=== PATIENT | female | born 1995 | race African-American/Black ===

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

== ENCOUNTER 2017-02-08 01:14 | Emergency (ER) | payer OTHER ==
[~2017-02-08] VITALS: Ht 160 cm; Wt 50.0 kg
[~2017-02-08 01:14] MED LIST changes: -AMOX875T2 PO; +BACT800T5 PO; +CLIN300C5 PO; -FERR1TAB36 PO; -MESA1TAB2 PO; -PRED10 PO
[2017-02-08 01:17] VITALS: BP 104/68; PULSE 78; RESP 16; TEMP 98.7; O2SAT 100
--- NOTE | 2017-02-08 01:31 | PD ---
HPI Chief Complaint: Adult Literacy Teacher Problem/Complaint Time Seen by Provider: 01:29 Travel History International Travel<30 days: No Contact w/Intl Traveler<30days: No Traveled to known affect area: No History of Present Illness HPI The patient is a 22 year old female who presents to the [facility] emergency department with a history of vaginal irritation and discharge that she reports is been ongoing for the last 3 weeks. She went to [facility] at the onset of symptoms and had a pelvic examination that revealed bacterial vaginosis. She reports that she took a 7 day course of the antibiotic. She reports that she had improvement for one day and then had recurrence of symptoms. The patient reports that the vaginal discharge is white to yellow in color. She reports that it has a slight odor. She reports that she has vaginal itching and burning associated with this. She denies any new sexual partners or concerns about sexually transmitted infections. Her last mental cycle was January 26. She denies having any abdominal pain, fever or chills. She denies having any vomiting or diarrhea. [facility] Past Medical History Narrative Medical The patient's past medical history is significant for being diagnosed with inflammatory bowel disease in June 2016 for Anemia: Yes Autoimmune Disease: No Cancer: No Cardiovascular Problems: No Diminished Hearing: No Endocrine: No Genitourinary: No Immune Disorder: No Neurologic: No Psychiatric: No Reproductive: No Respiratory: No Immunizations Current: Yes Sickle Cell Disease: No Tetanus Vaccination: < 5 Years ?: Not LMP: 01/26/2017 Past Surgical History Narrative Surgical The patient's past surgical history is significant for scoliosis surgery with seema placement in 2012. Other Surgery: Yes (rods in her back, 2012) Social History Alcohol Use: No Tobacco Use: No Substance Use: No Allergies-Medications (Allergen,Severity, Reaction): Coded Allergies: No Known Allergies (Unverified , 07/06/16) Reported Meds & Prescriptions Reported Meds & Active Scripts Active No Active Prescriptions or Reported Medications Review of Systems Except as stated in HPI: all other systems reviewed are Neg General / Constitutional: No: Fever Eyes: No: Visual changes HENT: No: Headaches Cardiovascular: No: Chest Pain or Discomfort Respiratory: No: Shortness of Breath Gastrointestinal: No: Abdominal Pain Genitourinary: Positive: Discharge, Other (vaginal itching), No: Urgency, Frequency, Dysuria Musculoskeletal: No: Pain Skin: No Rash Neurologic: No: Weakness Psychiatric: No: Depression Endocrine: No: Polydipsia Hematologic/Lymphatic: No: Easy Bruising Physical Exam Narrative General: The patient is a well-developed well-nourished female in no acute distress. Head and Neck exam: Head is normocephalic atraumatic. Neck: No palpable lymphadenopathy. No nuchal rigidity. No thyromegaly. Cardiovascular: Regular rate and rhythm without murmurs, gallops, or rubs. Lungs: Clear to auscultation bilaterally. No wheezes, rhonchi, or rales. Abdomen: Soft, without tenderness to palpation in all 4 quadrants of the abdomen. No guarding, rebound, or rigidity. Normal bowel sounds are audible. No tenderness on palpation of McBurney's point. Extremities: No clubbing, cyanosis, or edema. No calf tenderness on palpation. Back: No costovertebral angle tenderness to palpation. Neurologic Exam: Grossly nonfocal. Skin Exam: No rash noted. Intact skin that is warm and dry. Gynecologic exam: The patient was placed in the dorsal lithotomy position. Her external genitalia were examined. She had no evidence of rash or lesions. The speculum was placed into her vagina and the cervix was identified. The patient is noted to have a thin yellow discharge with occasional clumping noted. No cervical friability. On Bimanual exam: she has no cervical motion tenderness. No adnexal tenderness or prominence noted on palpation. No uterine tenderness or enlargement noted on palpation. Data Data Last Documented VS Vital Signs Date Time Temp Pulse Resp B/P (MAP) Pulse Ox O2 Delivery O2 Flow Rate FiO2 02/08/17 01:17 98.7 78 16 104/68 (80) 100 Orders Orders Gc And Chlamydia Pcr (02/08/17 01:30) Wet Prep Profile (02/08/17 01:30) Urinalysis - C+S If Indicated (02/08/17 01:30) Ed Urine Pregnancytest Poc (02/08/17 01:30) Azithromycin Powd Pack (Zithromax Powd P (02/08/17 02:45) Ceftriaxone Inj (Rocephin Inj) (02/08/17 02:45) Lidocaine 1% Inj (50 Ml) (Xylocaine 1% I (11/29/17 02:45) Labs Laboratory Tests Test 02/08/17 02:15 Urine Color YELLOW Urine Turbidity CLEAR Urine pH 6.0 Urine Specific [employer] 1.029 Urine Protein TRACE mg/dL Urine Glucose (UA) NEG mg/dL Urine Ketones NEG mg/dL Urine Occult Blood NEG Urine Nitrite NEG Urine Bilirubin NEG Urine Urobilinogen 2.0 MG/DL Urine Leukocyte Esterase LARGE Urine RBC 4 /hpf Urine WBC 5 /hpf Urine Squamous Epithelial Cells 3 /hpf Urine Bacteria RARE /hpf Urine Mucus FEW /lpf Urine Yeast (Budding) RARE Microscopic Urinalysis Comment CULT NOT INDICATED Clue Cells (Wet Prep) NONE SEEN Vaginal Trichomonas (Wet Prep) NONE SEEN Vaginal Yeast (Wet Prep) PRESENT MDM Medical Decision Making Medical Screen Exam Complete: Yes Emergency Medical Condition: Yes Medical Record Reviewed: Yes Differential Diagnosis Gonorrhea, versus chlamydia, versus bacterial vaginosis, versus yeast vaginitis , versus trichomoniasis Narrative Course During the course of the patients emergency department visit, the patients history, examination, and differential diagnosis were reviewed with the patient. The patient was placed on a school lunch monitor with oximetry and frequent blood pressure monitoring. The patient had a urine sent for analysis, bedside test was done and noted to be negative. GC and chlamydia were sent, wet prep was sent. The patient was initially provided Rocephin 250 IM, Zithromax 1 g by mouth. The patients laboratory studies were reviewed and remarkable for a urinalysis that shows large leukocyte esterase, 4 rbc's, rare bacteria, rare budding yeast , culture not indicated. Wet prep is positive for yeast. Patient will be discharged home with a prescription for Diflucan. The patient is instructed to start a probiotic supplement. The patient is resting comfortably and feels better, is alert and in no distress. The patients results and examination findings were discussed with the patient. The repeat examination is unremarkable and benign. The history, exam, diagnostic testing, and current condition do not suggest any significant pathology to warrant further testing, continued ED treatment, admission, or surgical evaluation at this point. The vital signs have been stable. The patient does not have uncontrollable pain, intractable vomiting, or other significant symptoms. The patient's condition is stable and appropriate for discharge. The patient will pursue further outpatient evaluation with a primary care physician or other designated or consulting physician as indicated in the discharge instructions. The patient expressed understanding and was agreeable with this plan. Diagnosis Primary Impression: Yeast vaginitis Referrals: [facility] 1 week Patient Instructions: General Instructions, Vulvovaginal Candidiasis (ED) Med/Other Pt SpecificInfo: Prescription(s) given Scripts Fluconazole (Diflucan) 150 Mg Tab 150 MG PO ONCE for Infection, #1 TAB 0 Refills Prov: Niurka Chilel MD 02/08/17 Disposition: 01 DISCHARGE HOME Condition: Stable Niurka Chilel MD Feb 08, 2017 01:31
[2017-02-08 02:41] LABS: BACTERIA, URINE RARE /hpf; BLOOD, URINE NEG (NEG); COMMENT (UR) CULT NOT INDICATED; CULTURE IF INDICATED CULT NOT INDICATED; GLUCOSE,URINE NEG (NEG); KETONE, URINE NEG (NEG); MUCUS URINE FEW /lpf (OCC); NITRITE,URINE NEG (NEG); SQUAMOUS EPITHELIAL CELL URINE 3 /hpf (0-5); URINE COLOR YELLOW (YELLW/STRAW)
[2017-02-08] MEDS ORDERED: AZITHROMYCIN PWD FOR SUSP 1 GM PACKET PO ONE (02:45)
[2017-02-08] MEDS ORDERED: cefTRIAXone 250 MG VIAL IM ONE (02:45)
[2017-02-08] MEDS ORDERED: LIDOCAINE HCL 1% 50 ML VIAL IM ONE (02:45)
[2017-02-08] MEDS ORDERED: DIFL150T PO (03:09)
[2017-02-08 04:35] LABS: CHLAMYDIA PCR NOT DETECTED (NOT DETECT); NEISSERIA PCR NOT DETECTED (NOT DETECT)
== END 2017-02-08 03:10 | disposition home or self-care (01) ==
LOC: NEPC 01:14
DX: N76.0 Acute vaginitis (principal); D64.9 Anemia, unspecified
CPT/HCPCS: 81001; 84703; 87210; 87491; 87591; 96372; 99284; J0696

== ENCOUNTER 2017-02-27 18:22 | Emergency (ER) | payer OTHER ==
[~2017-02-27] VITALS: Ht 160 cm; Wt 50.0 kg
[~2017-02-27 18:22] MED LIST changes: -BACT800T5 PO; -CLIN300C5 PO; +DIFL150T PO
[2017-02-27 18:23] VITALS: BP 115/65; PULSE 85; RESP 14; TEMP 98.4; O2SAT 99
--- NOTE | 2017-02-27 19:35 | PD ---
Physical Exam Date Seen by Provider: Feb 27, 2017 Time Seen by Provider: 18:34 Narrative Patient reports her soap has started vaginal discomfort that 2-3 days ago. She also report vaginal discharge. Patient has not stopped using the soap that is causing the irritation. Mild severity. No exacerbating or alleviating factors. Data Data Last Documented VS Vital Signs Date Time Temp Pulse Resp B/P (MAP) Pulse Ox O2 Delivery O2 Flow Rate FiO2 02/27/17 18:23 98.4 85 14 115/65 (82) 99 Orders Orders Ed Urine Pregnancytest Poc (02/27/17 18:35) Urinalysis - C+S If Indicated (02/27/17 18:35) Urine Culture (02/27/17 18:40) Labs Laboratory Tests Test 02/27/17 18:40 Urine Color YELLOW Urine Turbidity CLEAR Urine pH 7.0 Urine Specific [place] 1.022 Urine Protein TRACE mg/dL Urine Glucose (UA) NEG mg/dL Urine Ketones NEG mg/dL Urine Occult Blood NEG Urine Nitrite NEG Urine Bilirubin NEG Urine Urobilinogen LESS THAN 2.0 MG/DL Urine Leukocyte Esterase LARGE Urine RBC 1 /hpf Urine WBC 9 /hpf Urine Squamous Epithelial Cells 4 /hpf Urine Bacteria FEW /hpf Urine Mucus FEW /lpf Microscopic Urinalysis Comment CULTURE INDICATED MDM Supervised Visit with PAUL: No Narrative Course 22 year old female presents to the emergency department for evaluation of vaginal irritation that started after switching soaps. Patient appears well. UA and UPT are ordered and pending. Patient did not want to stay for treatment. She left AMA. Diagnosis Primary Impression: Left against medical advice Additional Impression: Vaginal irritation Disposition: 07 AGAINST MEDICAL ADVICE Stephanie Warren Feb 27, 2017 19:35
[2017-02-27 19:41] LABS: BACTERIA, URINE FEW /hpf; BILIRUBIN, URINE NEG (NEG); BLOOD, URINE NEG (NEG); GLUCOSE,URINE NEG (NEG); KETONE, URINE NEG (NEG); MUCUS URINE FEW /lpf (OCC); NITRITE,URINE NEG (NEG); SQUAMOUS EPITHELIAL CELL URINE 4 /hpf (0-5); URINE COLOR YELLOW (YELLW/STRAW); URINE LEUKOCYTE ESTERASE LARGE (NEG)
== END 2017-02-27 19:30 | disposition left against medical advice (07) ==
LOC: NED 18:22
DX: N89.8 Other specified noninflammatory disorders of vagina (principal)
CPT/HCPCS: 81001; 87086; 99283

== ENCOUNTER 2017-02-28 23:07 | Emergency (ER) | payer OTHER ==
[~2017-02-28] VITALS: Ht 160 cm; Wt 50.0 kg
[2017-02-28 23:22] VITALS: BP 128/73; PULSE 95; RESP 18; O2SAT 100
--- NOTE | 2017-02-28 23:54 | PD ---
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 Patient states she is sexually active however not been sexually active for several weeks now. She reports that she is using a new Dove soap that has a new fragments. She states that shortly after using that she started sprinting the irritation of her vagina. She denies any fevers, chills. She does report that she does practice safe sex. She states that she had a period since her last sexual encounter. There are no other complaints time my examination. PFSH Past Medical History Anemia: Yes Autoimmune Disease: No Cancer: No Cardiovascular Problems: No Diminished Hearing: No Endocrine: No Genitourinary: No Immune Disorder: No Musculoskeletal: Yes (SCOLIOSIS) Neurologic: No Psychiatric: No Reproductive: No Respiratory: No Immunizations Current: Yes Sickle Cell Disease: No ?: Not LMP: 02/21/17 Past Surgical History Other Surgery: Yes (rods in her back, 2013) Social History Alcohol Use: No Tobacco Use: No Substance Use: No Allergies-Medications (Allergen,Severity, Reaction): Coded Allergies: No Known Allergies (Unverified Adverse Reaction, Unknown, 02/28/17) Reported Meds & Prescriptions Reported Meds & Active Scripts Active No Active Prescriptions or Reported Medications Review of Systems Except as stated in HPI: all other systems reviewed are Neg General / Constitutional: No: Fever, Chills Gastrointestinal: No: Nausea, Vomiting, Abdominal Pain Genitourinary: Positive: Discharge, Other (vaginal irritation), No: Dysuria Physical Exam Narrative GENERAL: Well-nourished, well-developed patient, in no acute rest her distress. SKIN: Focused skin assessment warm/dry. HEAD: Normocephalic/atraumatic. EYES: No scleral icterus. No injection or drainage. NECK: Supple, trachea midline. GASTROINTESTINAL: Abdomen soft, non-tender, nondistended. GENITOURINARY: In the present of nurse Thapa. External vaginal area has dried area in her external vaginal inferior area consistent with a dermatitis. On speculum exam, there was yellow discharge noted in her vaginal vault. On bimanual exam there was no cervical motion tenderness or adnexal tenderness. Cultures were obtained for GC and chlamydia. Also wet prep was obtained. NEUROLOGICAL: Awake and alert. Cranial nerves II through XII intact. Motor and sensory grossly within normal limits. Five out of 5 muscle strength in all muscle groups. Normal speech. Data Data Last Documented VS Vital Signs Date Time Temp Pulse Resp B/P (MAP) Pulse Ox O2 Delivery O2 Flow Rate FiO2 02/28/17 23:22 95 18 128/73 (91) 100 Room Air Orders Orders Urinalysis - C+S If Indicated (02/28/17 23:38) Wet Prep Profile (02/28/17 23:38) Gc And Chlamydia Pcr (02/28/17 23:38) Ed Urine Pregnancytest Poc (02/28/17 23:51) Labs Laboratory Tests Test 02/28/17 23:45 03/01/17 00:28 Urine Color LIGHT-YELLOW Urine Turbidity CLEAR Urine pH 7.0 Urine Specific [place] 1.021 Urine Protein NEG mg/dL Urine Glucose (UA) NEG mg/dL Urine Ketones NEG mg/dL Urine Occult Blood NEG Urine Nitrite NEG Urine Bilirubin NEG Urine Urobilinogen LESS THAN 2.0 MG/DL Urine Leukocyte Esterase TRACE Urine RBC LESS THAN 1 /hpf Urine WBC 1 /hpf Urine Squamous Epithelial Cells <1 /hpf Urine Amorphous Sediment RARE Urine Mucus FEW /lpf Microscopic Urinalysis Comment CULT NOT INDICATED Clue Cells (Wet Prep) NS Vaginal Trichomonas (Wet Prep) NS Vaginal Yeast (Wet Prep) PRESENT MDM Medical Decision Making Medical Screen Exam Complete: Yes Emergency Medical Condition: Yes Differential Diagnosis STD versus HSV versus bacterial vaginosis versus external vaginal irritation Narrative Course 22-year-old female presents with external vaginal itching and irritation. Patient also has vaginal discharge. On vaginal examination patient had yellow thick discharge in her vaginal vault. There is no cervical motion tenderness or adnexal masses or tenderness. Wet prep grows out yeast. There is no evidence of bacterial vaginosis. GC and chlamydia are pending at this time. The patient will be discharged given a prescription for Diflucan 150 times one dose. She is instructed to treat with [id number] vaginal yeast preparation if she has symptoms after 72 hours. Diagnosis Primary Impression: Vulvovaginal candidiasis Additional Instructions: If symptoms persist after 72 hours, he can treat herself with the over-the- counter vaginal yeast infection preparation. Med/Other Pt SpecificInfo: Prescription(s) given Scripts Fluconazole (Diflucan) 150 Mg Tab 150 MG PO ONCE for Infection, #1 TAB 0 Refills Prov: Asaf Downing MD 03/01/17 Disposition: 01 DISCHARGE HOME Condition: Stable Asaf Downing MD Feb 28, 2017 23:54
[2017-03-01 00:44] LABS: AMORPHOUS SEDIMENT, URINE RARE; BILIRUBIN, URINE NEG (NEG); BLOOD, URINE NEG (NEG); GLUCOSE,URINE NEG (NEG); KETONE, URINE NEG (NEG); MUCUS URINE FEW /lpf (OCC); NITRITE,URINE NEG (NEG); SQUAMOUS EPITHELIAL CELL URINE <1 /hpf (0-5); URINE COLOR LIGHT-YELLOW (YELLW/STRAW); URINE LEUKOCYTE ESTERASE TRACE (NEG)
[2017-03-01] MEDS ORDERED: DIFL150T PO (00:50)
== END 2017-03-01 01:00 | disposition home or self-care (01) ==
LOC: NEPC 23:07
DX: B37.3 Candidiasis of vulva and vagina (principal)
CPT/HCPCS: 81001; 84703; 87210; 87491; 87591; 99283